=== PATIENT | male | born 1935 | race Caucasian/White ===

== ENCOUNTER 2017-07-25 19:15 | Emergency (ER) | payer MEDICARE, SELFPAY ==
[2017-07-25 19:17] VITALS: BP 122/63; PULSE 63; RESP 17; TEMP 36.2; O2SAT 97; BMI 32.1
--- NOTE | 2017-07-25 19:35 | CT_ITS ---
STUDY: CT ABDOMEN AND PELVIS WITHOUT CONTRAST REASON FOR EXAM: Male, 81 years old. Left flank pain RADIATION DOSAGE (If Supplied By Facility): CTDIvol = ( 13.39 ) mGy, DLP = ( 749.41 ) mGycm TECHNIQUE: Transaxial images were obtained from the dome of the diaphragm to the symphysis pubis without oral contrast, and without intravenous contrast. Sagittal and coronal images were reconstructed. Individualized dose optimization techniques were used for this CT. COMPARISON: None. FINDINGS: There is mild interstitial thickening at the lung bases.. There is a tiny calcified granulomata right lung base. The visualized portions of the heart are within normal limits. Normal liver. There are tiny calcified gallstones without evidence for acute cholecystitis. Normal spleen. Normal pancreas. Normal bilateral adrenal glands. Normal right kidney. Normal left kidney. Normal visualized stomach. Normal small intestine. Status post resection of right colon Minor diverticular changes of the descending colon without evidence for acute diverticulitis Appendix not visualized consistent with appendectomy Atherosclerotic changes of the aorta with borderline dilatation of the aorta and common iliac arteries. Normal inferior vena cava. Normal retroperitoneum. Markedly enlarged prostate impinging upon the base of bladder which is incompletely distended and diffusely thick-walled. Normal abdominal wall. Lumbar spine demonstrates mild spondylosis. CT/Abdomen/Pelvis without Cont IMPRESSION: Cholelithiasis without evidence for acute cholecystitis Minor diverticular changes in the descending colon without evidence for acute diverticulitis Nonspecific enlargement of prostate. No acute abnormalities. Other findings as above Electronically Signed: Ck Atkinson MD at 20:45 EDT , Service support ,
[2017-07-25 19:49] LABS: Bacteria 0 SEEN /hpf (None Seen); Mucous, Urine 0 SEEN /hpf (<or=2+); Red Blood Cells-Urine 0 SEEN /hpf (0-5); Squamous Epithelial Cells - UA 0 SEEN /hpf (0-5); White Blood Cells 0 SEEN /hpf (0-5)
[2017-07-25 19:52] LABS: Color, Urine Yellow (Yellow); Glucose, Dipstick Normal (Normal); Ketone-Dipstick Negative (Negative); Leukocyte Esterase-Dipstick Negative /ul (Negative); Nitrite-Dipstick Negative (Negative); Occult Blood-Urine Negative /ul (Negative); Protein-Dipstick Negative (Negative); Urine Bilirubin Dipstick Negative (Negative); Urine Clarity Sl. Cloudy (Clear); Urine Urobilinogen Normal (Normal)
[2017-07-25 20:00] LABS: Absolute Lymphocyte Count 1.83 X10^3/ul (0.83-4.51); Absolute Neutrophil Count 4.2 X10^3/uL (2.0-7.7); Basophil# 0.01 X10^3/uL; Basophil% 0.1 % (0-1); Eosinophil# 0.24 X10^3/uL; Eosinophils% 3.3 % (0-5); Hematocrit 39.8 % (40-54); Hemoglobin 12.9 g/dl (13.0-16.5); Lymphocyte # 1.83 X10^3/ul (4.0); Lymphocyte % 24.9 % (19-41); Mean Corp Hgb Conc 32.4 g/gl (32-36); Mean Corpuscular Hgb 31.2 pg (27.0-32.0); Mean Corpuscular Volume 96.4 fL (80-94); Mean Platelet Vol. 9.7 fl (6.2-12.0); Monocyte# 1.05 X10^3/uL; Monocyte% 14.3 % (0-10); Neutrophil # 4.19 X10^3/uL (2.7-7.7); Neutrophil % 57.1 % (47-70); POSITIVE COUNT NO; POSITIVE DIFFERENTIAL NO; POSITIVE MORPHOLOGY NO; Platelet Count 188 K/mm3 (150-450); RBC Distribution Width CV 13.8 % (11.6-14.6); RBC Distribution Width SD 47.9 fl (35.1-43.9); Red Blood Count 4.13 M/mm3 (4.6-6.2); White Blood Count 7.3 K/mm3 (4.4-11.0)
[2017-07-25] MEDS: 0.9% Normal Saline 1,000 ML 150 ML IV (20:07)
[2017-07-25] MEDS: Ondansetron ODT 4 MG Tablet PO (20:07)
[2017-07-25] MEDS: fentaNYL 100 MCG/2 ML Ampul 25 MCG IV ×2 (20:07→22:50)
[2017-07-25 20:08] LABS: Prothrombin Time (Protime)PT. 39.3 SECONDS (11.7-14.9)
--- NOTE | 2017-07-25 20:10 | ED.RN ---
lab called with critical lab results. INR 4.0. Dr. Tellez made aware. no new orders at this time
[2017-07-25 20:17] LABS: Anion Gap 5 (5-15); BUN 15 mg/dL (7-18); BUN/Creat Ratio 14.7 RATIO (10-20); Calcium,Total 8.7 mg/dL (8.5-10.1); Chloride 106 mmol/L (98-107); Creatinine, Serum 1.02 mg/dL (0.70-1.30); EST Glomerular Filtration Rate 74 mL/min (>60); Est Glom Filt Rate - Afr Amer 90 mL/min (>60); Estimated Creatinine Clearance 55.84 ml/min; Glucose 96 mg/dL (74-106); Potassium 4.2 mmol/L (3.5-5.1); Sodium Level 140 mmol/L (136-145)
[2017-07-25 20:52] LABS: Amorphous Sediment 1+
--- NOTE | 2017-07-25 21:07 | CT_ITS ---
STUDY: CTA CHEST REASON FOR EXAM: Male, 81 years old. Aortic dissection RADIATION DOSAGE (If Supplied By Facility): CTDIvol = ( 19.75 ) mGy, DLP = ( 854.50 ) mGycm TECHNIQUE: The examination was performed with the intravenous administration of 100ML ml of Isovue 370 contrast material. Post-processing of the angiographic images was performed, with multiplanar reformation and 3D reconstruction. Individualized dose optimization techniques were used for this CT. COMPARISON: None. FINDINGS: Normal enhancement of the main pulmonary artery and right and left pulmonary arteries. Normal enhancement of the bilateral peripheral pulmonary arteries. There is no demonstrated pulmonary embolism. Atherosclerotic changes of the aorta without evidence for aneurysm. There is no demonstrated aortic dissection. The heart is enlarged and there is multivessel coronary artery calcification Small subcentimeter hilar and mediastinal nodes.. Normal visualized trachea and bronchi. The lungs are well expanded. Is minor generalized interstitial thickening. There is subsegmental atelectasis in the lingula. There is mild atelectasis within the dependent portion of the lungs. Tiny granulomatous calcifications in the right lower lobe. Normal pleura. Normal chest wall structures. Dorsal spine demonstrates advanced spondylosis Tiny calcified gallstones are seen within the gallbladder without evidence for acute inflammation. CT/CTA Chest W/WO Contrast IMPRESSION: Atherosclerotic changes of the aorta without evidence for aneurysm periaortic leak or dissection.. Mild subsegmental atelectasis in the lingula and minor atelectasis within the dependent portion of the lungs. Cholelithiasis without evidence for acute cholecystitis Electronically Signed: Ck Atkinson MD at 22:11 EDT , Service support ,
--- NOTE | 2017-07-25 21:07 | EKG12_ITS ---
Test Reason : Blood Pressure : / mmHG Vent. Rate : 060 BPM Atrial Rate : 037 BPM P-R Int : 000 ms QRS Dur : 100 ms QT Int : 422 ms P-R-T Axes : 000 074 033 degrees QTc Int : 422 ms Atrial fibrillation Abnormal ECG Confirmed by BLAKE GIVENS, SONIA ([id number]), multimedia editor HENNA ELY ([id number]) on 07/28/2017 12:52:44 PM Referred By: JAUN Confirmed By:SONIA LOZANO MD
--- NOTE | 2017-07-25 21:11 | NURSING ---
NO OLD EKG'S IN MUSE
--- NOTE | 2017-07-25 22:28 | ED.DCSUM_ITS ---
- ER Visit Summary Date of Service: 07/25/17 Chief Complaint: Left flank pain History of Present Illness: The patient is a 81 M who reports left flank pain since 2 AM this morning. He presents at 30 p.m. for evaluation. Patient states the pain is been waxing and waning. It is somewhat worse with movement and with leaning against his back. It does not radiate into the groin. He denies nausea, vomiting, or diarrhea. He denies dysuria or hematuria. Patient did take ibuprofen prior to arrival. Past history significant for BPH, atrial fibrillation for which he is on Coumadin, and colon cancer. Patient did have partial colectomy. 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 Physical Examination: Vital signs are unremarkable. Patient sitting upright in bed no acute distress. Head neck examination is normal. Heart is regular rate and rhythm. Lung sounds are clear. Abdomen is soft nontender. Back examination reveals left CVA tenderness. There is no rash or lesions. Patient has equal pulses throughout. Test Results: CBC was normal white count with hemoglobin of 12.9. Chemistry studies normal. His INR is supratherapeutic at 4.0. His urinalysis is normal. CT flank reveals cholelithiasis without evidence of cholecystitis. He has minor diverticular changes in the descending colon without diverticulitis. There is no evidence of kidney stone. Emergency Department Course and Treatment: Patient was initially given fentanyl , Zofran, and IV fluids. On repeat evaluation is resting comfortably. During this repeat evaluation he mentions that he took nitro at 4 AM this morning secondary to chest pain, back pain, and pain rating to his arms. He had not mentioned this previously. Patient denied any chest pain currently. At that time EKG is added which reveals atrial fibrillation at a rate of 60 bpm. There is no acute ST change. Troponin is less than 0.02. CTA of the chest was obtained which revealed atherosclerosis of the aorta but no dissection or leak. Test results are discussed with patient and family members at bedside. At this time I am unable to explain the source of his pain, but has been able to rule out several bad causes of pain. He will be given a short course of Percocet for home. He is to follow-up with his doctor in [place] where he lives. I did advise him to hold his Coumadin for the next 2 days to bring his INR back down into the therapeutic range. Treatment Plan: [] Disposition: Discharge Impression: 1. Left flank pain, uncertain etiology 2. Chest pain, resolved 3. Supratherapeutic INR This note was generated with [employer] dictation software. It may contain incorrect words, spelling, and punctuation that were not noted in review of the chart prior to signing ED Disposition - Plan for ED Patient: Disposition: Home or Assisted Living Chief Complaint: Flank Pain Instructions: ED Chest Pain Atypical Unkn Cause, ED Flank Pain Uncertain Cause Prescriptions: Oxycodone HCl/Acetaminophen [Percocet 5/325] 1 tablet PO Q6H PRN PRN 4 Days #12 tablet PRN Reason: Pain Referrals: [facility] [address] Doctor,Out of [Primary Care Provider] -
--- NOTE | 2017-07-25 22:33 | DCINST.ED_ITS ---
ED Disposition - Plan for ED Patient: Disposition: Home or Assisted Living Chief Complaint: Flank Pain Instructions: ED Flank Pain Uncertain Cause, ED Chest Pain Atypical Unkn Cause Prescriptions: Oxycodone HCl/Acetaminophen [Percocet 5/325] 1 tablet PO Q6H PRN PRN 4 Days #12 tablet PRN Reason: Pain Referrals: [facility] Doctor,Out of [Primary Care Provider] -
[2017-07-25] MEDS: oxyCODONE 5 MG Tablet PO (22:50)
[2017-07-25 22:51] VITALS: BP 118/68; PULSE 56; RESP 16; O2SAT 95
== END 2017-07-25 23:22 | disposition home or self-care (01) ==
PROVIDERS: Emergency Provider Emergency Medicine
DX: R10.9 Unspecified abdominal pain (principal); R07.9 Chest pain, unspecified; R79.1 Abnormal coagulation profile; K80.20 Calculus of gallbladder without cholecystitis without obstruction; K57.30 Diverticulosis of large intestine without perforation or abscess without bleeding; I70.0 Atherosclerosis of aorta; N40.0 Benign prostatic hyperplasia without lower urinary tract symptoms; I48.91 Unspecified atrial fibrillation; Z85.038 Personal history of other malignant neoplasm of large intestine; Z90.49 Acquired absence of other specified parts of digestive tract; Z95.1 Presence of aortocoronary bypass graft; Z79.01 Long term (current) use of anticoagulants; Z79.899 Other long term (current) drug therapy
CPT/HCPCS: 71275; 74176; 80048; 81001; 84484; 85025; 85610; 93005; 96361; 96374; 96375; 96376; 99284; J7030; Q9967